=== PATIENT | male | born 1965 | race African-American/Black ===

== ENCOUNTER → 2018-06-10 | Outpatient (CLI) | payer OTHER ==
[2015-11-27 22:30] VITALS: BP 173/101
[~2018-06-10] MED LIST: ZOLPIDEM 5 MG TABLET. PO ONE
--- NOTE | 2018-06-11 17:43 | SLEEP ---
DATE OF STUDY: 06/10/2018 ATTENDING PHYSICIAN: Dr. Louise. The patient is a 52 years old who weighs 317 pounds with a BMI of 43. The patient's [place] score was 3. The patient underwent sleep study at [facility]. During the night study, the patient spent 427 minutes in bed and slept for 302 minutes with a sleep efficiency of 71%. Sleep latency was 93 minutes, which is prolonged with a REM latency of 199 minutes. Overall, sleep architecture showed increased stage I and stage 2 sleep, reduced slow wave and reduced REM sleep. During the night study, the patient had 13 obstructive apneas, 1 mixed and 1 central apnea and 84 hypopneas. The patient's apnea hypopnea index was 20 per hour, supine index 26 per hour and a REM index of 107 per hour. EKG monitoring revealed average heart rate of 96 beats per minute with a maximum of 109 beats per minute. No sustained arrhythmias were observed. There was sinus tachycardia, occasional. Nocturnal oximetry study revealed a mean oxygen saturation of 96% lowest of 58%. This was noticeable during supine REM sleep. 10% of time oxygen saturation remained between 80% and 89%. PLMS were seen at an index of 1 per hour and then caused EEG arousals. Due to low AHI, the patient did not meet the split night criteria for CPAP initiation. IMPRESSION: 1. Moderate sleep apnea-hypopnea syndrome with worsening during REM sleep. Total AHI 20 per hour with a REM AHI of 107 per hour. 2. Nocturnal hypoxia, which was worse during REM sleep and related to obstructive sleep apnea. 3. No clinically significant periodic limb movements of sleep. 4. Reduced sleep efficiency resulting from sleep onset and sleep maintenance insomnia. RECOMMENDATIONS: 1. The patient would benefit from in-lab CPAP titration study. 2. Once optimum CPAP pressure is achieved, then follow up in 4-6 weeks to assess compliance with CPAP and to document clinical improvement. 3. Weight loss is strongly advised. 4. Avoid BOILER RELINER depressants. 5. Caution regarding driving until symptoms of sleep apnea resolve with above recommendations. KARI BLOOM MD DR: GISELLE/marci JOB#: [id number] / [id number] JOSEP LOUISE MD
== END | disposition home or self-care (01) ==
LOC: SLPLAB 18:36
PROVIDERS: ATTEND Internal Medicine
DX: G47.33 Obstructive sleep apnea (adult) (pediatric) (principal); G47.34 Idiopathic sleep related nonobstructive alveolar hypoventilation; I10 Essential (primary) hypertension; E11.9 Type 2 diabetes mellitus without complications; E78.00 Pure hypercholesterolemia, unspecified; Z87.891 Personal history of nicotine dependence
CPT/HCPCS: 95810

== ENCOUNTER → 2019-04-07 | Outpatient (CLI) | payer OTHER ==
[2015-11-27 22:30] VITALS: BP 173/101
== END | disposition home or self-care (01) ==
LOC: SPEC 17:41
PROVIDERS: ATTEND Podiatrist
DX: E11.621 Type 2 diabetes mellitus with foot ulcer (principal)
CPT/HCPCS: 87071; 87075

== ENCOUNTER 2019-04-28 09:10 | Outpatient (CLI) | payer OTHER ==
[~2019-04-28] VITALS: Ht 182.9 cm; Wt 142.9 kg
[2019-04-28] VITALS (9 sets, daily range): BP systolic 140–170; BP diastolic 69–88
[2019-04-28 09:51] LABS: BASO % 0 % (0-3); EOS # 0.1 x10^3/uL (0.0-0.7); EOS % 1 % (0-3); HEMATOCRIT 34.5 % (39.0-53.0); HEMOGLOBIN 11.7 g/dL (13.0-17.5); LYMPH # 1.8 x10^3/uL (1.0-4.8); LYMPH % 28 % (24-48); MEAN CORPUSCULAR HEMOGLOBIN 26 pg (25-35); MEAN CORPUSCULAR HGB CONC 34 g/dL (31-37); MEAN CORPUSCULAR VOLUME 77 fL (79-100); MONO # 0.5 x10^3/uL (0.0-1.1); MONO % 7 % (0-9); NEUT # 4.1 x10^3/uL (1.8-7.7); NEUT % 63 % (31-73); PLATELET COUNT 223 x10^3/uL (140-400); RED BLOOD COUNT 4.49 x10^6/uL (4.30-5.70); RED CELL DISTRIBUTION WIDTH 14.5 % (11.5-14.5); WHITE BLOOD COUNT 6.4 x10^3/uL (4.0-11.0)
[2019-04-28] MEDS ORDERED: IODIXANOL 320 MG/ML 100 ML VIAL. ONE (09:58)
[2019-04-28] MEDS ORDERED: LIDOCAINE WITH 8.4% SOD BICARB 3 ML DISP.SYRIN. ONE (09:59)
[2019-04-28] MEDS ORDERED: HEPARIN for ARTERIAL LINE 1,500 ML ONE (09:59)
[2019-04-28 10:01] LABS: CALCIUM 9.4 mg/dL (8.5-10.1); CREATININE 1.4 mg/dL (0.7-1.3); GFR 64.1; PROTHROMBIN TIME PATIENT 12.3 SEC (11.7-14.0)
[2019-04-28] MEDS ORDERED: TAMS0.4C97 PO (10:26)
[2019-04-28] MEDS ORDERED: INSU100V37 SQ (10:26)
[2019-04-28] MEDS ORDERED: BUDE10.2 IH (10:26)
[2019-04-28] MEDS ORDERED: CYCL10TA2 PO (10:26)
[2019-04-28] MEDS ORDERED: FEBU80TA2 PO (10:26)
[2019-04-28] MEDS ORDERED: INSU100C SQ (10:26)
[2019-04-28] MEDS ORDERED: METF500T16 PO (10:26)
[2019-04-28] MEDS ORDERED: CLON0.2T PO (10:26)
[2019-04-28] MEDS ORDERED: PRAV40TA2 PO (10:26)
[2019-04-28] MEDS ORDERED: CARV6.25 PO (10:26)
[2019-04-28] MEDS ORDERED: LISI-334 PO (10:26)
[2019-04-28] MEDS ORDERED: fentaNYL PF VIAL 100 MCG/2 ML VIAL ONE (10:31)
[2019-04-28] MEDS ORDERED: MIDAZOLAM HCL/PF 5 MG/5 ML VIAL. ONE (10:31)
[2019-04-28] MEDS ORDERED: HEPARIN for IV BOLUS 10,000 UNIT/10 ML VIAL. ONE (10:31)
[2019-04-28] MEDS ORDERED: fentaNYL PF VIAL 100 MCG/2 ML VIAL IV ONE (11:00)
[2019-04-28] MEDS ORDERED: IODIXANOL 320 MG/ML 100 ML VIAL. IART ONE (11:00)
[2019-04-28] MEDS ORDERED: LIDOCAINE WITH 8.4% SOD BICARB 3 ML DISP.SYRIN. IJ ONE (11:00)
[2019-04-28] MEDS ORDERED: MIDAZOLAM HCL/PF 5 MG/5 ML VIAL. IV ONE (11:00)
[2019-04-28] MEDS ORDERED: CONTRAST GIVEN. MC PRN (11:15)
--- NOTE | 2019-04-28 14:54 | NUR ---
Discharge Note: TANYA MCARTHUR Discharge instructions and discharge home medications reviewed with Patient and a copy given. All questions have been answered and understanding verbalized. The following instructions and handouts were given: groin site care and adult moderate sedation Discontinued lines and drains: Peripheral IV intact. Patient discharged to Home or Self Care withSpousevia Wheelchair
--- NOTE | 2019-05-08 11:34 | RAD ---
04/29/2019 7:53 AM Procedure: 1. Abdominal aortogram 2. Pelvic angiogram 3. Bilateral lower extremity angiography Indication: The procedure was explained in its entirety to the patient or the patients designated utility sales representative by a member of the treatment team, including a discussion of the risks, benefits and commonly accepted alternatives to the procedure, as well as the expected consequences of no therapy whatsoever. Discussion of the risks included, but was not limited to, those that are most frequent and those that are rare but possibly severe or life-threatening, as well as the possibility of unforeseen complications. All elements of maximal sterile barrier technique including the use of a cap, mask, sterile gown, sterile gloves, large sterile sheet, appropriate hand hygiene, and 2% chlorhexidine for cutaneous antisepsis (or acceptable alternative antiseptic per current guidelines) were followed for this procedure. The right groin was prepped and draped using sterile barrier technique. 1% lidocaine was administered for local anesthesia. Ultrasound fluoroscopic guidance were used to access the right common from artery. The arteries U accessed under direct ultrasound guidance using micropuncture technique. Reference ultrasound images were saved the medical record. A 5 Tajik chest sheath was placed. A catheter was advanced to the abdominal aorta. Abdominal angiogram demonstrates no aneurysm or hemodynamically significant stenosis Pelvic angiography demonstrates no significant internal, external, common iliac stenosis Left lower extremity angiography was performed demonstrating short segment occlusion or near occlusion of the left common femoral artery secondary to dense calcification. The remainder of the left SFA however is widely patent. Left popliteal artery is widely patent. The anterior tibial artery demonstrates multiple proximal stenoses however the posterior tibial and peroneal artery are widely patent. The catheter was removed.. Angiography of the right lower extremity was performed through the pre-existing sheath. The left superficial femoral artery and popliteal artery are patent. The posterior tibial and peroneal artery are patent on the left. Anterior tibial artery appears chronically occluded. Distal reconstitution of the dorsalis pedis noted. The sheath was removed. Hemostasis obtained. A closure device was used. Sterile dressings were applied. Total Fluoroscopy Time: 6.7 Minutes Dose area Product: 408 Gycm2 Sedation The procedure was performed under conscious sedation, including continuous cardiopulmonary monitoring via a dedicated sedation nurse. Face to face sedation time : 66 minutes Impression: 1. No significant aortoiliac stenosis 2. Near occlusion or occlusion of the left common femoral artery which is densely calcified. Patient was referred to a vascular surgeon for left common femoral endarterectomy. 3. No significant left femoral popliteal stenosis 4. Multifocal stenosis involving the left anterior tibial artery. Left Dorsalis pedis artery is patent. Left peroneal and posterior tibial arteries are patent. 5. Chronic total occlusion, right anterior tibial artery
[2019-05-22] MEDS ORDERED: ANAS1TAB PO (08:20)
[2019-05-22] MEDS ORDERED: FEBU80TA2 PO (08:20)
[2019-05-22] MEDS ORDERED: CLOM50TA16 PO (08:20)
[2019-06-17] MEDS ORDERED: AMLO5TAB10 PO (12:48)
[2019-06-17] MEDS ORDERED: BYSTOLIC5 MG PO (12:48)
[2019-06-17] MEDS ORDERED: BUDE10.2 IH (12:48)
[2019-06-17] MEDS ORDERED: CYCL10TA2 PO (12:48)
[2019-06-17] MEDS ORDERED: HYDR12.58 PO (12:48)
== END 2019-04-28 14:56 | disposition home or self-care (01) ==
LOC: INTRAD 09:10
PROVIDERS: ATTEND Emergency Medicine Undersea and Hyperbaric Medicine
DX: I70.248 Atherosclerosis of native arteries of left leg with ulceration of other part of lower leg (principal); I77.1 Stricture of artery; I10 Essential (primary) hypertension; E78.5 Hyperlipidemia, unspecified; E11.40 Type 2 diabetes mellitus with diabetic neuropathy, unspecified; G47.33 Obstructive sleep apnea (adult) (pediatric); J45.909 Unspecified asthma, uncomplicated; Z79.01 Long term (current) use of anticoagulants; Z79.4 Long term (current) use of insulin; Z79.899 Other long term (current) drug therapy
CPT/HCPCS: 36200; 36415; 75625; 75716; 76937; 80048; 85025; 85610; 85730; 99152; 99153; C1713; C1760; C1769; C1892; C1894; J1644; J2250; J3010; Q9967; 36246; G0269

== ENCOUNTER 2019-06-17 14:03 | Outpatient (CLI) | payer OTHER ==
[~2019-06-17] VITALS: Ht 182.9 cm; Wt 140.6 kg
[2019-06-17] VITALS (11 sets, daily range): BP systolic 118–161; BP diastolic 69–89
[2019-06-17 12:41] LABS: HEMATOCRIT 36.5 % (39.0-53.0); RED BLOOD COUNT 4.67 x10^6/uL (4.30-5.70); WHITE BLOOD COUNT 7.3 x10^3/uL (4.0-11.0)
[2019-06-17 12:48] LABS: CALCIUM 9.6 mg/dL (8.5-10.1); CREATININE 1.3 mg/dL (0.7-1.3); GFR 69.9; POTASSIUM 4.7 mmol/L (3.5-5.1)
[2019-06-17 12:55] LABS: PROTHROMBIN TIME PATIENT 12.2 SEC (11.7-14.0)
[~2019-06-17 14:03] MED LIST changes: +AMLO5TAB10 PO; +ANAS1TAB PO; +BUDE10.2 IH; +BYSTOLIC5 MG PO; +CARV6.25 PO; +CLOM50TA16 PO; +CLON0.2T PO; +CONTRAST GIVEN. MC PRN; +CYCL10TA2 PO; +FEBU80TA2 PO; +HEPARIN for IV BOLUS 10,000 UNIT/10 ML VIAL. IART ONE; +HEPARIN for IV BOLUS 10,000 UNIT/10 ML VIAL. ONE; +HYDR12.58 PO; +INSU100C SQ; +INSU100V37 SQ; +IODIXANOL 320 MG/ML 100 ML VIAL. IART ONE; +IODIXANOL 320 MG/ML 100 ML VIAL. ONE; +LIDOCAINE 1% PF 2 ML VIAL. INJ ONE; +LIDOCAINE 1% PF 2 ML VIAL. ONE; +LISI-334 PO; +METF500T16 PO; +MIDAZOLAM HCL/PF 2 MG/2 ML VIAL. IV ONE; +MIDAZOLAM HCL/PF 2 MG/2 ML VIAL. ONE; +NITROGLYCERIN 200 MCG/2 ML SYRINGE FOR CATH/VASC LAB. IART ONE; +NITROGLYCERIN 200 MCG/2 ML SYRINGE FOR CATH/VASC LAB. ONE; +PRAV40TA2 PO; +TAMS0.4C97 PO; +VERAPAMIL 5 MG/2 ML VIAL. IART ONE; +VERAPAMIL 5 MG/2 ML VIAL. ONE; -ZOLPIDEM 5 MG TABLET. PO ONE; +fentaNYL PF VIAL 100 MCG/2 ML VIAL IV ONE; +fentaNYL PF VIAL 100 MCG/2 ML VIAL ONE
[2019-06-17] MEDS ORDERED: IV 1/2 NORMAL SALINE 1,000 ML IV SCH (15:33)
--- NOTE | 2019-06-17 15:33 | PDOC ---
MODERATE SEDATION ASSESSMENT RISKS/ALTERNATIVES Risks/Alternatives Risks and alternatives of this type of sedation and procedure discussed with: RISK/ALTERNATIVES: Patient H & P ON CHART H & P H & P on chart and reviewed for co-morbid conditions and appropriate labs. H&P ON CHART: Yes STATUS PREG STATUS ASSESSED: N/A MEDS/ALLERGIES REVIEWED Meds/Allergies Reviewed Medications and Allergies including time and route of recently administered narcotics and sedatives. MEDS/ALLERGIES REVIEWED: Yes ASA RATING ASA RATING: II AIRWAY ASSESSMENT Airway Assessment Airway patency, oral function limitations, presence of caps, crowns, dentures, partials, and ability to extend neck assessed. AIRWAY ASSESSMENT: Yes MALLAMPATI SCORE MALLAMPATI SCORE: II PRE-SEDATION ASSESSMENT PRE-SEDATION ASSESSMENT: Yes RENA SEQUEIRA MD Jun 17, 2019 15:33
--- NOTE | 2019-06-17 15:39 | CARD ---
MR#: [id number] Date of Study: 06/17/2019 Ordering Physician: HEMAL MARIE, Referring Physician: HEMAL MARIE, Tech: RT Maninder (R) APPROVED REPORT Technologist: RT Maninder (R) Nurse: Chelo Helms RN Procedure(s) performed: Left heart catheterization, selective coronary angiography and left ventricul ography via right transradial approach Sedation Time: 40 minutes Contrast: 111mL Visipaque Fluoro Time: 9.5 minutes Dose: 63.52 Gycm2 INDICATION The indication(s) include : Preoperative evaluation and positive stress test. CS Clinical Frailty Scale [facility] Clinical Frailty Scale: Managing Well Heart Failure Heart Failure: No PROCEDURE NARRATIVE After explaining the risks, benefits and alternative options, informed consent was obtained from brenda ent. Patient was brought to the [facility] and right wrist was prepped and draped in the usual fashion after confirming a positive modified Marco Antonio's test. Arterial access was obtained in the righ t radial artery and a 6 Chadian sheath was inserted. 6 Chadian Jose Antonio catheter and 6 Chadian JL 3.5 cat heter were used to perform selective angiography of the right and left coronary arteries. 6 Chadian pi gtail catheter was used to perform left ventriculography. Patient tolerated the procedure well. Hem ostasis was achieved using TR band. There were no immediate complications. The following findings w ere noted. FINDINGS 1. Hemodynamics: Left ventricular end-diastolic pressure of 12 mmHg. No pullback gradient across th e aortic valve. 2. Left ventriculography: Normal left ventricle systolic function with ejection fraction estimated at 60%. No significant mitral regurgitation seen. 3. Coronary angiography: a. The left main coronary artery arose from the left sinus of Valsalva, gave rise to the left anteri or descending and left circumflex arteries and did not show any significant stenosis. b. The left anterior descending artery showed mild to moderate diffuse disease in the apical segment without any significant stenoses. c. The left circumflex artery did not show any significant stenosis. d. The right coronary artery was a large and dominant vessel arising from the right sinus of Valsalv a that did not show any significant stenosis. Conclusion 1. No significant coronary artery disease 2. Normal left ventricle systolic function with ejection fraction estimated at 60%. Signed by : Sedrick Johnson, Electronically Approved : 06/17/2019 15:39:09
[2019-06-17] MEDS ORDERED: NITROGLYCERIN SUBLINGUAL 0.4 MG BOTTLE OF 25. SL PRN (15:45)
--- NOTE | 2019-06-17 16:58 | NUR ---
Discharge Note: TANYA MCARTHUR Discharge instructions and discharge home medications reviewed with Patient and a copy given. All questions have been answered and understanding verbalized. The following instructions and handouts were given: radial site care and adult moderate sedation Discontinued lines and drains: Peripheral IV intact. Patient discharged to Home or Self Care withSpousevia Wheelchair
== END 2019-06-17 17:06 | disposition home or self-care (01) ==
LOC: CCL 14:03
PROVIDERS: ATTEND Internal Medicine Cardiovascular Disease
DX: R94.39 Abnormal result of other cardiovascular function study (principal); Z79.01 Long term (current) use of anticoagulants
CPT/HCPCS: 36415; 80048; 85027; 85610; 93458; 99152; 99153; C1769; C1892; J1644; J2250; J3010; J3490; Q9967

== ENCOUNTER → 2019-10-13 | Day surgery (SDC) | payer OTHER ==
[~2019-10-13] MED LIST changes: -CONTRAST GIVEN. MC PRN; -HEPARIN for IV BOLUS 10,000 UNIT/10 ML VIAL. IART ONE; -HEPARIN for IV BOLUS 10,000 UNIT/10 ML VIAL. ONE; +HYDR-2769 PO; -IODIXANOL 320 MG/ML 100 ML VIAL. IART ONE; -IODIXANOL 320 MG/ML 100 ML VIAL. ONE; +IV RINGERS,LACTATED 1000ML 1,000 ML IV SCH; -LIDOCAINE 1% PF 2 ML VIAL. INJ ONE; -LIDOCAINE 1% PF 2 ML VIAL. ONE; +LIDOCAINE 2% PF 5 ML VIAL. ONE; -MIDAZOLAM HCL/PF 2 MG/2 ML VIAL. IV ONE; -MIDAZOLAM HCL/PF 2 MG/2 ML VIAL. ONE; -NITROGLYCERIN 200 MCG/2 ML SYRINGE FOR CATH/VASC LAB. IART ONE; -NITROGLYCERIN 200 MCG/2 ML SYRINGE FOR CATH/VASC LAB. ONE; +PROPOFOL 40 ML IV ONE; +TRAM50TA PO; -VERAPAMIL 5 MG/2 ML VIAL. IART ONE; -VERAPAMIL 5 MG/2 ML VIAL. ONE; -fentaNYL PF VIAL 100 MCG/2 ML VIAL IV ONE; -fentaNYL PF VIAL 100 MCG/2 ML VIAL ONE
--- NOTE | 2019-10-13 13:13 | PDOC1 ---
History and Physical Date of Admission Date of Admission DATE: 10/13/19 TIME: 13:07 Identification/Chief Complaint Chief Complaint Colon cancer screening Source Source: Chart review, Patient History of Present Illness History of Present Illness 53 y/o male here for colon cancer screening. No prior screening. Occasional constipation handled with OTC meds, otherwise w/o complaints. No GI family history. Past Medical History Cardiovascular: HTN, Hyperlipidemia Rheumatologic: Gout Endocrine: Diabetes Past Surgical History Past Surgical History: No pertinent history Family History Family History Negative for GI issues. Social History Smoke: No ALCOHOL: none Drugs: None Current Medications Current Medications Current Medications Ringer's Solution 1,000 ml @ 50 mls/hr Q20H IV ; Start 10/13/19 at 07:00; Stop 10/13/19 at 18:59 Active Scripts Active Reported Symbicort 160-4.5 Mcg Inhaler (Budesonide/Formoterol Fumarate) 10.2 Gm Hfa.aer.ad 2 Puff IH BID Hydrochlorothiazide Tablet (Hydrochlorothiazide) 12.5 Mg Tablet 12.5 Mg PO DAILY Cyclobenzaprine Hcl 10 Mg Tablet 1 Tab PO TID Amlodipine Besylate 5 Mg Tablet 5 Mg PO DAILY Bystolic (Nebivolol) 5 Mg Tablet 5 Mg PO DAILY Uloric (Febuxostat) 80 Mg Tablet 80 Mg PO Clonidine Hcl 0.2 Mg Tablet 0.2 Mg PO DAILY Cyclobenzaprine Hcl 10 Mg Tablet 10 Mg PO BID Tresiba (Insulin Degludec) 100 Unit/1 Ml Vial 100 Unit SQ HS Coreg (Carvedilol) 6.25 Mg Tablet 6.25 Mg PO BID Humalog (Insulin Lispro) 100 Unit/1 Ml Cartridge 30 Unit SQ TIDAC Uloric (Febuxostat) 80 Mg Tablet 80 Mg PO DAILY Lisinopril 20 Mg Tablet 40 Mg PO DAILY Pravastatin Sodium 40 Mg Tablet 20 Mg PO DAILY Symbicort 160-4.5 Mcg Inhaler (Budesonide/Formoterol Fumarate) 10.2 Gm Hfa.aer.ad 2 Puff IH BID Allergies Allergies: Coded Allergies: No Known Drug Allergies (Unverified , 12/06/13) ROS Review of System Otherwise negative. Physical Exam General: Alert, Oriented X3, Cooperative, No acute distress HEENT: Atraumatic, PERRLA, EOMI Lungs: Clear to auscultation Heart: RRR, no gallops, no murmurs Abdomen: Normal bowel sounds, Soft, No tenderness, No hepatosplenomegaly, No masses Rectal Exam: deferred (to time of procedure) Extremities: No cyanosis, No edema Skin: No significant lesion Neuro: Normal speech, Strength at 5/5 X4 ext, Normal tone, Sensation intact, Cranial nerves 3-12 NL, Reflexes 2+ Psych/Mental Status: Mental status NL, Mood NL Vitals Vitals See nursing records. VTE Prophylaxis Ordered VTE Prophylaxis Devices: No VTE Pharmacological Prophylaxi: No Assessment/Plan Assessment/Plan IMP: Screen for colon cancer, average risk. PLAN: Colonoscopy. JOSEP DUNN MD Oct 13, 2019 13:13
--- NOTE | 2019-10-13 13:54 | PDOC4 ---
PROCEDURE Procedure Colonoscopy Indication: Screening, average risk Meds: per anesthesia Findings: VENKAT: normal --'Scope advanced to cecum. Prep good. Mucosa normal. No tics, polyps. Small internal hemorrhoids on retroflex. Gagandeep. well. IMP: Small hemorrhoids, otherwise normal exam to cecum. REC: Resume home meds, diet. Consider repeat exam in 10 years. Can f/u with me prn. JOSEP DUNN MD Oct 13, 2019 13:54
[2019-10-13 14:23] VITALS: BP 129/79
== END ==
LOC: ENDOS 13:04
PROVIDERS: ATTEND Internal Medicine Gastroenterology
DX: K59.00 Constipation, unspecified (principal); K64.0 First degree hemorrhoids; K63.89 Other specified diseases of intestine; I10 Essential (primary) hypertension; E78.5 Hyperlipidemia, unspecified; M10.9 Gout, unspecified; Z79.84 Long term (current) use of oral hypoglycemic drugs; Z79.899 Other long term (current) drug therapy
CPT/HCPCS: 45378; 82962; J2001; J2704